=== PATIENT | female | born 1950 | race Caucasian/White ===

== ENCOUNTER → 2017-12-15 | Outpatient (CLI) | payer OTHER | LOC: LAB 09:27 | PROVIDERS: ATTEND Orthopaedic Surgery | DX: E11.9 Type 2 diabetes mellitus without complications (principal) | CPT/HCPCS: 36415; 83036 ==

== ENCOUNTER 2021-09-25 11:15 | Observation (INO) ==
[2021-09-25 11:24] VITALS: BMI 34.7
--- NOTE | 2021-09-25 11:59 | DR.CP ---
HPI Time Seen Time Seen by Provider: 09/25/21 11:41 PCP Primary Care Physician: Keegan HPI Comment HPI Comment: A 71 y/o female presenting to the ED with: 1) elevated BP 2-3 days, 2) h/a and 3) c/p. The headache is generalized, pressure type. She has no associated n/v or blurred vision. The c/p has been intermittent over the past 1- 2 months, is non radiating but became steady and pressure like this morning. She mild dyspnea, but no palpitations, n/v or diaphoresis. She has a scheduled appt. with spray cementer (Sandi) for a stress test on 10/01/2021. Complaint Chief Complaint:: Pt c/o high blood pressure since Thursday. She states she has been having intermittent chest tightness for several weeks. Pt has stress test scheduled next week. Pt also c/o headace since yesterday. COVID-19 Coronavirus risk:travel/contact w/high risk person: No Has patient experienced Coronavirus symptoms: No Source History Provided: Patient Mode of Arrival Mode of Arrival: Ambulatory Timing Onset of Chief Complaint: 09/23/21 Came on: Gradually Pain: Present Now Duration Duration: Constant Location Location of Chest Pain: Chest Chest Pain Radiation Location: None Context Onset: At rest Cardiac Risk Factors: Hyperlipidemia and HTN PE Risk Factors: None Prehospital Care: None Quality Quality: Pressure like Severity Severity: Mild and Moderate Modifying Factors Worsens: Nothing Impoves: Nothing Associated Signs and Symptoms Associated Signs and Symptoms: Shortness of Breath PMH PMH Past Medical History: Yes Past Medical History: Hypertension Past Surgical History: Yes Surgical History: Ortho Surgery Past Surgical History Comment: hernia repair Family History History of Family Medical Conditions: No Social History Does patient currently use any type of tobacco product: No Have you used tobacco products in the last 12 months: No Type of Tobacco Use: None Does any household member use tobacco: No Alcohol Use: None Do you use any recreational Drugs:: No Lives With: Family Lives Where: Home Travel Risk Coronavirus risk:travel/contact w/high risk person: No Has patient experienced Coronavirus symptoms: No Infectious screening In the last 2 months have you had wt loss of >10#?: NO Have you had fever, night sweats or hemotysis?: No Have you traveled outside the country in the last 6 months?: No Isolation: Standard ROS Review of Systems Constitutional: No Symptoms Reported Eyes: No Symptoms Reported ENTM: No Symptoms Reported Respiratoy: No Symptoms Reported Cardiovascular: Chest Pain Gastrointestinal/Abdominal: No Symptoms Reported Genitourinary: No Symptoms Reported Neurological: Headache Musculoskeletal: No Symptoms Reported Integumentary: No Symptoms Reported Hematologic/Lymphatic: No Symptoms Reported Endocrine: No Symptoms Reported Psychiatric: No Symptoms Reported PE Vitals Vitals: Temperature 98.0 F Pulse Rate [Left Radial] 61 Pulse Rate 57 Respiratory Rate 23 Blood Pressure [Right Arm] 173/111 Blood Pressure 141/65 O2 Sat by Pulse Oximetry 96 General Limitations: No Limitations General Appearance: Alert and In No Apparent Distress Head Head Exam: Normal Inspection, Atraumatic and Normocephalic Eyes Eye exam: Normal Appearance and EOMI ENT ENT Exam: Normal Exam, Normal Oropharynx, Normal External Ear Exam and Mucous Membranes Moist Chest Chest Inspection: Normal Inspection and Symmetric Chest Wall Rise Respiratory Respiratory Exam: Normal Lung Sounds Bilat Cardiovascular Cardiovascular Exam: Regular Rate, Normal Rhythm, Normal Heart Sounds, +S1 and +S2 Abdominal Exam Abdominal Exam: Normal Inspection, Normal Bowel Sounds and Soft Extremities Extremities Exam: Normal Inspection and Full ROM Back Back Exam: Normal Inspection and Full ROM Neurologic Neurological Exam: Alert and Oriented X3 Psychiatric Psychiatric Exam: Normal Affect and Normal Mood Skin Skin Exam: Intact MDM Differential Diagnosis Differential Diagnosis: Angina, Chest Wall Pain, CHF, Myocardial Infarction, Pneumonia and Pulmonary Embolus ROR Labs Reviewed Laboratory Results Reviewed?: Yes Result Diagrams: 09/25/21 12:06 09/25/21 12:06 Laboratory: WBC 10.5 X10^3/uL (3.6-10.0) H 09/25/21 12:06 RBC 4.04 X10^6/uL (3.5-5.4) 09/25/21 12:06 Hgb 13.1 g/dL (12.0-16.0) 09/25/21 12:06 Hct 38.2 % (36.0-47.0) 09/25/21 12:06 MCV 94.5 fL (80.0-100.0) 09/25/21 12:06 MCH 32.5 pg (27.0-34.0) 09/25/21 12:06 MCHC 34.4 g/dL (33.0-35.0) 09/25/21 12:06 RDW 15.8 % (11.6-16.5) 09/25/21 12:06 Plt Count 189 X10^3/uL (150.0-450.0) 09/25/21 12:06 Plt Count Comment Adequate (ADEQUATE) 09/25/21 12:06 MPV 10.1 fL (7.4-11.0) 09/25/21 12:06 Neut % (Auto) 72.3 % (42.0-75.0) 09/25/21 12:06 Lymph % (Auto) 15.6 % (21.0-51.0) L 09/25/21 12:06 [place] % (Auto) 9.1 % (0.0-13.0) 09/25/21 12:06 Eos % (Auto) 1.3 % (0.9-2.9) 09/25/21 12:06 Baso % (Auto) 1.7 % (0.2-1.0) H 09/25/21 12:06 Neut # (Auto) 7.1 x10^3/uL (2.2-4.8) H 09/25/21 12:06 Lymph # (Auto) 1.5 X10^3/uL (1.3-2.9) 09/25/21 12:06 [place] # (Auto) 0.9 x10^3/uL (0.3-0.8) H 09/25/21 12:06 Eos # (Auto) 0.1 x10^3/uL (0.0-0.2) 09/25/21 12:06 Baso # (Auto) 0.2 X10^3/uL (0.0-0.1) H 09/25/21 12:06 Absolute Nucleated RBC 0.3 /100WBC 09/25/21 12:06 Total Counted 100 09/25/21 12:06 Neutrophils % (Manual) 78 % (39-76) H 09/25/21 12:06 Band Neutrophils % 1 % (0-10) 09/25/21 12:06 Lymphocytes % (Manual) 13 % (13-43) 09/25/21 12:06 Monocytes % (Manual) 8 % (4-9) 09/25/21 12:06 Plt Morphology Comment Normal (NORMAL) 09/25/21 12:06 RBC Morphology Normal (NORMAL) 09/25/21 12:06 PT 12.2 SECONDS (11.8-14.3) 09/25/21 12:06 INR Target Range - 09/25/21 12:06 INR 0.95 (0.8-1.3) 09/25/21 12:06 APTT 20.2 SECONDS (22.9-36.5) L 09/25/21 12:06 PTT Comment - 09/25/21 12:06 D-Dimer 0.49 ug/ml (0.0-0.57) 09/25/21 12:06 Sodium 141 mmol/L (136-145) 09/25/21 12:06 Corrected Sodium TNP 09/25/21 12:06 Potassium 3.9 mmol/L (3.5-5.1) 09/25/21 12:06 Chloride 106 mmol/L (98-107) 09/25/21 12:06 Carbon Dioxide 27.1 mmol/L (21-32) 09/25/21 12:06 BUN 27 mg/dL (7-18) H 09/25/21 12:06 Creatinine 0.90 mg/dL (0.55-1.02) 09/25/21 12:06 Est GFR (MDRD) Af Amer > 60 (>60) 09/25/21 12:06 Est GFR (MDRD) Non-Af > 60 (>60) 09/25/21 12:06 Glucose 88 mg/dL (65-99) 09/25/21 12:06 Calcium 8.7 mg/dL (8.5-10.1) 09/25/21 12:06 Corrected Calcium TNP 09/25/21 12:06 Magnesium 2.1 mg/dL (1.7-2.9) 09/25/21 12:06 Total Bilirubin 0.40 mg/dL (0.2-1.0) 09/25/21 12:06 AST 33 Units/L (15-37) 09/25/21 12:06 ALT 24 Units/L (12-78) 09/25/21 12:06 Alkaline Phosphatase 59 Units/L (46-116) 09/25/21 12:06 Creatine Kinase 106 Units/L (26-192) 09/25/21 12:06 CK-MB (CK-2) 1.1 ng/mL (0-4.0) 09/25/21 12:06 CK/CKMB % Calc 1.0 % (<4) 09/25/21 12:06 Troponin I < 0.02 ng/mL (0-1.5) 09/25/21 12:06 Total Protein 6.8 g/dL (6.4-8.2) 09/25/21 12:06 Albumin 3.6 g/dL (3.4-5.0) 09/25/21 12:06 Globulin 3.2 g/dL (2.5-4.5) 09/25/21 12:06 Albumin/Globulin Ratio 1.1 Ratio (1.1-2.1) 09/25/21 12:06 EKG Rate: 65 [place]: Normal Rhythm: NSR Block: None Hypertrophy: LVH ST: Normal Opioid Opioid Risk Tool Age ([place] box if 16-45): No History of Preadolescent Sexual Abuse: No Total: 0 Total Score Risk Category: Low Risk Copyright: Palomo predicting aberrant behaviors Diagnosis Discharge Problem: Hypertension, uncontrolled Chest pain Qualifiers: Chest pain type: chest pain on breathing Qualified Code(s): R07.1 - Chest pain on breathing Headache Qualifiers: Headache type: tension-type Headache chronicity pattern: acute headache Intractability: not intractable Qualified Code(s): G44.209 - Tension-type headache, unspecified, not intractable
[2021-09-25] MEDS ORDERED: CATAPRES TAB 0.1 MG PO ONE (12:11)
[2021-09-25] MEDS ORDERED: NITROSTAT SL PRN (12:11)
[2021-09-25] MEDS ORDERED: MORPHINE SULFATE INJ 2 MG INJ IVP PRN (12:11)
[2021-09-25 12:23] LABS: EOSINOPHILS # (AUTO) 0.1 x10^3/uL (0.0-0.2); HEMATOCRIT 38.2 % (36.0-47.0); HEMOGLOBIN 13.1 g/dL (12.0-16.0)
[2021-09-25 12:25] LABS: BASOPHILS # (AUTO) 0.2 X10^3/uL (0.0-0.1); BASOPHILS % (AUTO) 1.7 % (0.2-1.0); EOSINOPHILS % (AUTO) 1.3 % (0.9-2.9); LYMPHOCYTES # (AUTO) 1.5 X10^3/uL (1.3-2.9); LYMPHOCYTES % (AUTO) 15.6 % (21.0-51.0); MEAN CORPUSCULAR HEMOGLOBIN 32.5 pg (27.0-34.0); MEAN CORPUSCULAR HGB CONC 34.4 g/dL (33.0-35.0); MEAN CORPUSCULAR VOLUME 94.5 fL (80.0-100.0); MEAN PLATELET VOLUME 10.1 fL (7.4-11.0); MONOCYTES # (AUTO) 0.9 x10^3/uL (0.3-0.8); MONOCYTES % (AUTO) 9.1 % (0.0-13.0); NEUTROPHILS # (AUTO) 7.1 x10^3/uL (2.2-4.8); NEUTROPHILS % (AUTO) 72.3 % (42.0-75.0); PLATELET COUNT 189 X10^3/uL (150.0-450.0); RED BLOOD COUNT 4.04 X10^6/uL (3.5-5.4); RED CELL DISTRIBUTION WIDTH 15.8 % (11.6-16.5)
[2021-09-25] MEDS ORDERED: CATAPRES TAB 0.1 MG ONE (12:29)
[2021-09-25 12:38] LABS: ALANINE AMINOTRANSFERASE 24 Units/L (12-78); ALBUMIN 3.6 g/dL (3.4-5.0); ALKALINE PHOSPHATASE 59 Units/L (46-116); ASPARTATE AMINO TRANSFERASE 33 Units/L (15-37); BLOOD UREA NITROGEN 27 mg/dL (7-18); CALCIUM 8.7 mg/dL (8.5-10.1); CARBON DIOXIDE 27.1 mmol/L (21-32); CHLORIDE 106 mmol/L (98-107); CREATINE KINASE 106 Units/L (26-192); CREATINE KINASE MB 1.1 ng/mL (0-4.0); MAGNESIUM 2.1 mg/dL (1.7-2.9); SODIUM 141 mmol/L (136-145); TOTAL PROTEIN 6.8 g/dL (6.4-8.2); TROPONIN I < 0.02 ng/mL (0-1.5); eGFR NON BLACK RACES > 60 (>60)
[2021-09-25 13:03] LABS: WHITE BLOOD COUNT 10.5 X10^3/uL (3.6-10.0)
[2021-09-25 13:10] LABS: BAND NEUTROPHILS % 1 % (0-10); PLATELET MORPHOLOGY COMMENT NORMAL (NORMAL)
[2021-09-25] MEDS ORDERED: TYLENOL 325 MG TAB PO ONE ×2 (13:39→13:44)
[2021-09-25] MEDS ORDERED: NITROSTAT ONE (13:44)
[2021-09-25 15:19] LABS: CREATINE KINASE 96 Units/L (26-192); CREATINE KINASE MB < 1.0 ng/mL (0-4.0); TROPONIN I < 0.02 ng/mL (0-1.5)
[2021-09-25] MEDS: LOVENOX INJ 40 MG SYR SC SCH (16:24)
[2021-09-25] MEDS ORDERED: TYLENOL 325 MG TAB PO PRN (18:10)
--- NOTE | 2021-09-25 18:35 | RAD ---
CHEST, 1 VIEWHISTORY:CHEST PAINStudy: Single view of the chest.Comparison:NoneFindings:Cardiomegaly and pulmonary vascular congestion. No focal consolidations, pleural effusions or pneumothorax. Osseous structures demonstrate no acute abnormality.IMPRESSION:1.Cardiomegaly and pulmonary vascular congestion.Electronically signed by: NANETTE CLARKE (Sep 25, 2021 18:33:30)
[2021-09-25] MEDS ORDERED: REQUIP PO SCH (21:00)
[2021-09-25] MEDS ORDERED: TRICOR TAB 145 MG PO SCH (21:00)
[2021-09-25] MEDS ORDERED: CRESTOR TAB 10 MG PO SCH (21:00)
[2021-09-25] MEDS ORDERED: BENICAR TAB 40 MG PO SCH (21:00)
[2021-09-25] MEDS ORDERED: CELEXA PO SCH (21:00)
[2021-09-25] MEDS ORDERED: LOVENOX INJ 100 MG SYR SC SCH (21:00)
[2021-09-25] MEDS ORDERED: ZyrTEC TAB 10 MG PO SCH (21:00)
[2021-09-26 01:16] LABS: CKMB % 1.3 % (<4); CREATINE KINASE 79 Units/L (26-192); CREATINE KINASE MB < 1.0 ng/mL (0-4.0); TROPONIN I < 0.02 ng/mL (0-1.5)
[2021-09-26 06:11] LABS: BASOPHILS # (AUTO) 0.1 X10^3/uL (0.0-0.1); EOSINOPHILS # (AUTO) 0.1 x10^3/uL (0.0-0.2); EOSINOPHILS % (AUTO) 1.6 % (0.9-2.9); HEMATOCRIT 36.3 % (36.0-47.0); HEMOGLOBIN 12.3 g/dL (12.0-16.0); LYMPHOCYTES # (AUTO) 1.1 X10^3/uL (1.3-2.9); LYMPHOCYTES % (AUTO) 19.3 % (21.0-51.0); MEAN CORPUSCULAR HEMOGLOBIN 32.5 pg (27.0-34.0); MEAN CORPUSCULAR HGB CONC 33.8 g/dL (33.0-35.0); MEAN CORPUSCULAR VOLUME 96.1 fL (80.0-100.0); MEAN PLATELET VOLUME 10.1 fL (7.4-11.0); MONOCYTES # (AUTO) 0.6 x10^3/uL (0.3-0.8); MONOCYTES % (AUTO) 9.7 % (0.0-13.0); NEUTROPHILS # (AUTO) 4.1 x10^3/uL (2.2-4.8); NEUTROPHILS % (AUTO) 68.4 % (42.0-75.0); PLATELET COUNT 177 X10^3/uL (150.0-450.0); RED BLOOD COUNT 3.77 X10^6/uL (3.5-5.4); RED CELL DISTRIBUTION WIDTH 15.3 % (11.6-16.5); WHITE BLOOD COUNT 5.9 X10^3/uL (3.6-10.0)
[2021-09-26 06:21] LABS: ALANINE AMINOTRANSFERASE 21 Units/L (12-78); ALBUMIN 3.1 g/dL (3.4-5.0); ALKALINE PHOSPHATASE 53 Units/L (46-116); ASPARTATE AMINO TRANSFERASE 30 Units/L (15-37); BLOOD UREA NITROGEN 34 mg/dL (7-18); CALCIUM 8.5 mg/dL (8.5-10.1); CARBON DIOXIDE 25.8 mmol/L (21-32); CHLORIDE 107 mmol/L (98-107); CHOL/HDL RATIO 3.7 (0.0-5.0); CHOLESTEROL 116 mg/dL (0-200); COR CA(FOR HYPOALB) 9.2 mg/dL (8.5-10.1); CREATININE 0.98 mg/dL (0.55-1.02); HDL CHOLESTEROL 31 mg/dL (40-60); SODIUM 141 mmol/L (136-145); TOTAL PROTEIN 6.1 g/dL (6.4-8.2); TRIGLYCERIDES 84 mg/dL (0-150); eGFR NON BLACK RACES 59 (>60)
[2021-09-26] MEDS: LOVENOX INJ 40 MG SYR SC SCH (08:37)
[2021-09-26 08:51] VITALS: BP 175/78
[2021-09-26] MEDS ORDERED: FLEXERIL TAB 10 MG PO SCH (09:00)
[2021-09-26] MEDS ORDERED: ASPIRIN EC 81 MG PO SCH (09:00)
[2021-09-26] MEDS ORDERED: TOPROL XL PO SCH (09:00)
[2021-09-26] MEDS ORDERED: CLARITIN PO SCH (09:00)
[2021-09-26] MEDS ORDERED: OXAPROZIN 600 MG PO SCH (09:00)
[2021-09-26] MEDS ORDERED: PROTONIX TAB 40 MG PO SCH (09:00)
[2021-09-26] MEDS ORDERED: VITAMIN D3 125 mcg (5,000 UNITS) PO SCH (09:00)
--- NOTE | 2021-10-01 15:40 | DR.H&P ---
H&P - History & Physical for Day of: H&P Date: 09/25/21 - Chief Complaint Chief Complaint: Chest pain - History of Present Illness History of Present Illness: Patient is a 71 year old white female who is a direct admit due to chest pain. Patient reports chest pain on exertion and shortness of breath when walking but reports no arm pain on exertion, no shortness of breath when lying down, no palpitations, no known heart murmur, and no ankle swelling. She reports shortness of breath but reports no cough, no wheezing, no coughing up blood, and no sleep apnea. She reports arthralgias/joint pain and neck pain but reports no muscle aches, no muscle weakness, no back pain, no swelling in the extremities, no difficulty walking, no cramps, no osteoporosis, and no fractures. Denies loss of consciousness, no weakness, no numbness, no seizures, no tremor, no gait dysfunction, and no paralysis. She reports no fever, no night sweats, no significant weight gain, no significant weight loss, no exercise intolerance, no chills, and no malaise. She reports no dry eyes, no vision change, no irritation, and no eye disease/injury. She reports no difficulty hearing and no ear pain. She reports no frequent nosebleeds, no nose problems, and no sinus problems. She reports no sore throat, no bleeding gums, no snoring, no dry mouth, no mouth ulcers, no oral abnormalities, no teeth problems, no ringing in the ears, and no sinusitis. She reports no abdominal pain, no nausea, no vomiting, no constipation, normal appetite, no diarrhea, not vomiting blood, no dyspepsia, and no GERD. She reports no incontinence, no difficulty urinating, no hematuria, and no increased frequency. She reports no abnormal mole, no jaundice, no rashes, no laceration, no non-healing areas, no changes in hair/nails, no psoriasis, no change in skin color, and no breast lump. She reports no depression, no sleep disturbances, feeling safe in a relationship, no alcohol abuse, no anxiety, no hallucinations, no suicidal thoughts, no mood swings, no memory loss, no agitation, no dementia, and no delirium. She reports no fatigue. She reports no swollen glands, no bruising, no excessive bleeding, no anemia, and no phlebitis. She reports no runny nose, no sinus pressure, no itching, no hives, and no frequent sneezing. Patient has been admitted for further workup. - Past Medical History Past Medical History: Hypertension - Past Surgical History Surgical History: Hysterectomy, Ortho Surgery - Family History Family Medical History: Hypertension - Social History Does patient currently use any type of tobacco product: No Have you used tobacco products in the last 12 months: No Type of Tobacco Use: None Does any household member use tobacco: No Alcohol Use: None Drug Use: None - Medications Home Medications: codeine Allergy (Verified 09/25/21 11:24) morphine Allergy (Verified 09/25/21 11:24) CONTINUE taking the following medications aspirin 81 mg PO DAILY 09/25/21 [History] cholecalciferol (vitamin D3) [Vitamin D3] 15,000 unit PO DAILY 09/25/21 [History] citalopram 20 mg PO HS 09/25/21 [History] cyclobenzaprine 10 mg PO DAILY 09/25/21 [History] fenofibric acid (choline) 135 mg PO HS 09/25/21 [History] levocetirizine [Xyzal] 5 mg PO QHS 09/25/21 [History] loratadine [Claritin] 10 mg PO DAILY 09/25/21 [History] metoprolol succinate 50 mg PO DAILY 09/25/21 [History] olmesartan 20 mg PO HS 09/25/21 [History] oxaprozin 600 mg PO DAILY 09/25/21 [History] ropinirole 1 mg PO HS 09/25/21 [History] rosuvastatin 40 mg PO HS 09/25/21 [History] - Review of Systems Constitutional: See HPI Eyes: See HPI ENT: See HPI Respiratory: See HPI Cardiovascular: Chest Pain, See HPI Gastrointestinal: See HPI Genitourinary: See HPI Musculoskeletal: See HPI Skin: See HPI Neurological: See HPI - Physical Exam Vital Signs: Temperature 98.3 F Pulse Rate [Left Radial] 61 Pulse Rate 62 Respiratory Rate 20 Blood Pressure [Right Arm] 175/78 Blood Pressure 141/65 O2 Sat by Pulse Oximetry 97 Oriented: Normal, Time, Person, Place Eyes: Normal Ear: Normal Nose: Normal Throat: Normal Respiratory: Clear Throughout Cardiovascular: Normal : Normal Auscultation: Bowel Sounds: Normal Palpation: Normal Tenderness: Normal Skin: Normal Musculoskeletal: Normal Psychiatric: Normal Mood Description: Calm Affect: Normal Speech Pattern: Clear, Appropriate - Assessment/Plan (1) Dyspnea Status: Acute (2) Chest pain Qualifiers: Chest pain type: chest pain on breathing Qualified Code(s): R07.1 - Chest pain on breathing Status: Acute Plan: serial cardiacs, ekgs, tele, asa, labs as ordered, cxr, see further orders (3) Hypertension, uncontrolled Status: Acute - Allergies Allergies/Adverse Reactions: Allergies Allergy/AdvReac Type Severity Reaction Status Date / Time codeine Allergy Verified 09/25/21 11:24 morphine Allergy Verified 09/25/21 11:24
--- NOTE | 2021-10-01 15:44 | PCM.DCPLAN ---
Discharge Plan - Discharge Plan Disposition: [facility] Condition: Stable
== END 2021-09-26 10:50 | disposition short-term general hospital (02) ==
LOC: MED/SURG 11:15 → ER 11:15 → MED/SURG 15:10
PROVIDERS: ADMIT Internal Medicine; ATTEND Internal Medicine
DX: Z20.822 Contact with and (suspected) exposure to COVID-19; R79.1 Abnormal coagulation profile; I10 Essential (primary) hypertension; G44.209 Tension-type headache, unspecified, not intractable; R07.1 Chest pain on breathing; R94.31 Abnormal electrocardiogram [ECG] [EKG]; R06.02 Shortness of breath